=== PATIENT | female | born 1965 | race Caucasian/White ===

== ENCOUNTER → 2018-10-09 | Outpatient (CLI) | payer OTHER | LOC: M.RAD 11:39 | DX: Z12.31 Encounter for screening mammogram for malignant neoplasm of breast (principal) ==

== ENCOUNTER → 2019-04-08 | Outpatient (CLI) | payer OTHER ==
[2019-04-08 08:33] LABS: ABSOLUTE EOSINOPHILS 0.2 thou/uL (0.0-0.7); ABSOLUTE LYMPHOCYTES 1.4 thou/uL (0.8-5.3); ABSOLUTE MONOCYTES 0.4 thou/uL (0.0-1.2); ABSOLUTE NEUTROPHILS 2.6 thou/uL (1.6-8.1); BASOPHILS 0.8 %; EOSINOPHILS 3.3 %; HEMATOCRIT 40.5 % (37.0-47.0); HEMOGLOBIN 14.4 gm/dL (12.0-15.0); LYMPHOCYTES 31.2 %; MCH 33.8 pg (26.0-34.0); MCHC 35.5 g/dL (28.0-37.0); MONOCYTES 8.7 %; MPV 8.8 fl. (7.2-11.1); NUCLEATED RBCS 0 /100WBC; PLATELET COUNT* 267 thou/uL (150-400); RBC 4.26 mil/uL (4.20-5.00); WBC 4.6 thou/uL (4.0-11.0)
[2019-04-08 09:03] LABS: ALBUMIN 3.9 g/dL (3.4-5.0); ALKALINE PHOSPHATASE 97 U/L (46-116); ANION GAP 10 mmol/L (7-16); BUN 15 mg/dL (7-18); CALCIUM 9.1 mg/dL (8.5-10.1); CHLORIDE 101 mmol/L (98-107); CHOLESTEROL 251 mg/dL (<200); CO2 28 mmol/L (21-32); CREATININE 0.7 mg/dL (0.6-1.3); GLUCOSE 104 mg/dL (70-99); HDL CHOLESTEROL 52 mg/dL (>40); LDL CHOLESTEROL 170 mg/dL (<100); POTASSIUM 3.7 mmol/L (3.5-5.1); SGOT 16 U/L (15-37); SGPT 30 U/L (30-65); SODIUM 139 mmol/L (136-145); TC:HDL 4.8 Ratio (Not establshd); TOTAL BILIRUBIN 0.5 mg/dL (<0.1-1.0); TOTAL PROTEIN 7.4 g/dL (6.4-8.2); TRIGLYCERIDE 148 mg/dL (<150); VLDL 30 mg/dL (<40)
[2019-04-08 09:04] LABS: SERUM ASSESSMENT Clear
[2019-04-10 02:10] LABS: GLYCOHEMOGLOBIN (HGB A1C) 5.5 % (4.8-5.6)
== END ==
LOC: M.LAB 08:08
PROVIDERS: Family Medicine
DX: F33.1 Major depressive disorder, recurrent, moderate (principal); F41.9 Anxiety disorder, unspecified; R63.5 Abnormal weight gain; R73.09 Other abnormal glucose

== ENCOUNTER → 2019-05-01 | Outpatient (CLI) | payer OTHER | LOC: M.CT 04-21 11:00 | DX: Z13.6 Encounter for screening for cardiovascular disorders (principal) ==

== ENCOUNTER → 2019-09-26 | Outpatient (CLI) | payer OTHER | LOC: M.RAD 16:23 | DX: M47.816 Spondylosis without myelopathy or radiculopathy, lumbar region (principal); M43.17 Spondylolisthesis, lumbosacral region; M48.061 Spinal stenosis, lumbar region without neurogenic claudication; M25.78 Osteophyte, vertebrae; M12.88 Other specific arthropathies, not elsewhere classified, other specified site ==

== ENCOUNTER → 2019-10-06 | Outpatient (CLI) | payer OTHER | LOC: M.MRI 11:30 | DX: M47.816 Spondylosis without myelopathy or radiculopathy, lumbar region (principal); M48.061 Spinal stenosis, lumbar region without neurogenic claudication; M51.26 Other intervertebral disc displacement, lumbar region ==

== ENCOUNTER → 2019-10-16 | Outpatient (CLI) | payer OTHER ==
[~2019-10-16] MED LIST: AMITRIPTYLINE H10 M3 PO; MOBIC15 MG PO; VALIUM5 MG PO; ZOLOFT25 MG PO
--- NOTE | 2019-10-17 08:24 | PAINCON ---
[address] [address] PAIN MANAGEMENT CONSULTATION Name: YOLANDATG A [id number] Admission: 10/16/19 Attend Phys: Kam Marques MD Discharge: Date of : 61 Report #: [id number] THIS REPORT FOR: //name// cc: Jake Gracia Linda J. DO ~ THIS REPORT FOR: //name// CC: JAKE Samayoa DATE OF SERVICE: 10/16/2019 PRIMARY CARE PHYSICIAN: Jake Gracia DO CHIEF COMPLAINT: Back and leg pain. HISTORY: The patient is a 53-year-old female who has been referred to the pain clinic for evaluation of back and leg pain. The patient states that she has had a long history about the last 10-15 years of chronic back pain. She has undergone a number of treatments, which have included chiropractic treatment, use of nonsteroidal anti-inflammatory medications, Lidoderm patches, Medrol Dosepak, dexamethasone treatments with continued back pain. 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 As the day progresses, her pain becomes more and more problematic. 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 Pain involves the low back area. Also involves both hips. Notes that the iliotibial band areas are quite sore. Has pain in the front of her quad. Pain is particularly problematic if she stands in one place. Bending over is problematic. Pain is somewhat improved, if she continues to move. Describes her discomfort as continuous, constant, cramping, aching, gnawing and sharp at times. Rates it as a 2-3 in the morning and elevates to 7-8 by evening. Denies any trauma. Denies back surgery. Rates her pain as a pain score is a 66/70 in regards to the impact scores. ALLERGIES: AMOXICILLIN, BIAXIN, INFLUENZA VACCINES. CURRENT MEDICATIONS: Nonsteroidal anti-inflammatory medications [id number]. PAST SURGICAL HISTORY: Breast augmentation 2001. 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 REVIEW OF SYSTEMS: Generally good health, headaches, wears glasses, chronic sinus problems, chronic cough, joint pain, muscle pain and cramps, back pain, [place] [address] PAIN MANAGEMENT CONSULTATION Name: TG GUERRERO Radha Room: [facility]#: [id number] Admission: 10/16/19 Attend Phys: Kam Marques MD Discharge: Date of : 61 Report #: [id number] difficulty walking, frequent recurring headaches, nervousness, anxiety, depression, somewhat insomnia. LABORATORY DATA: MRI of the lumbar spine dated 10/06/2019 shows at L2-L3 there is a broad-based disk bulge, which abuts the anterior thecal sac. The canal measures 13 mm, minimal extension of the disk is seen into the right foramen causing minimal foraminal tapering at L3-L4. There are early posterior facet degenerative changes with broad-based disk bulge. The canal measures 13 mm. At L4-L5, there are moderate posterior disk facet degenerative changes with broad-based disk protrusions. No impingement is seen in the overall canal. The disk extends into the foramen causing mild bilateral foraminal stenosis. At the L5-S1 level, there is minimal bulging of the disk annulus without impingement on the canal. Severe posterior facet degenerative changes are present at this level. Together, these findings cause mild bilateral foraminal stenosis, left greater than right. PAIN CLINIC ASSESSMENT AND PQRS: 1. Height 5 feet 1 inch, weight 146 pounds, BMI is 27.7. 2. Vital signs: Blood pressure 143/83, heart rate 92, respiratory rate 16, room air saturation 98%. 3. Pain intensity 7/10. 4. Fall history: The patient has not fallen in the last 3 months. 5. Blood thinner. The patient is not on a blood thinning medication. 6. Hypertension. The patient is not being treated for hypertension. 7. Opioids greater than 6 weeks. The patient is not receiving opioids on a regular basis. 8. Risk assessment tool, low for opioid use. 9. Functional assessment tool has 60/70. 10. Recreational drug use: The patient denies. 11. Tobacco: The patient denies use of tobacco. 12. Alcohol. The patient denies frequent use of alcoholic beverages. PHYSICAL EXAMINATION: GENERAL: The patient is a well-developed, well-nourished white female. Appears her stated age. She is alert and oriented x 3. Her affect is appropriate. Speech is fluent. HEENT: Normocephalic, atraumatic. Extraocular eye muscles intact. Sclerae nonicteric. Mucous membranes are moist. NECK: Without adenopathy or JVD. HEART: Regular rate. LUNGS: Clear to auscultation. ABDOMEN: Nontender. MUSCULOSKELETAL: Upper extremity muscle strength judged to be 5/5 for the major muscle groups in the upper extremity. Deep tendon reflexes are trace at the biceps bilaterally. Lower extremity muscle strength judged to be 5/5 for the major muscle groups in the lower extremity. Deep tendon reflexes are +2 at the [place] [address] PAIN MANAGEMENT CONSULTATION Name: YOLANDATG Radha Room: [facility]#: [id number] Admission: 10/16/19 Attend Phys: Kam Marques MD Discharge: Date of : 61 Report #: [id number] knees bilaterally. Colby's sign is negative. Anterior and posterior spring tests are negative. The patient notes increased pain and discomfort while standing and leaning from the left to the right. Left and right lateral rotation cause some increased pain and discomfort in the back as well. Lumbar extension was not problematic. The patient was able to bend over to touch her toes with a slight amount of pain and discomfort. Notes pain and discomfort in the left as well as right iliotibial tract and near the left and right bursa. The patient has pain and discomfort that radiates down in the L3-L4 dermatomal distribution of her legs. IMPRESSION: Lumbar radiculopathy L3-L4 dermatomal distribution with pain and discomfort, sensory changes. The patient with MRI showing Modic changes at the L3-L4 area with degenerative joint disease and narrowing of the disk space. RECOMMENDATIONS: We discussed treatment options with the patient. At this juncture, we will try a nonsteroidal anti-inflammatory medication. We will try Mobic. This is a long-acting medication. She can take this once daily. Hopefully, this will be helpful in decreasing the pain and discomfort that she is experiencing. She will also try Elavil. The patient is having difficulty sleeping. Use of amitriptyline medication has been helpful in chronic pain situations. The patient will take a minimal dose of this medication. Maximum dose can be 150 mg. We will start her out with 10 mg. We discussed the possible side effects of the medication. 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 I do not think she is going to have any of these problems and will try that medication. She will try 10 mg for the first 3 days and if she is still having difficulty with pain as well as inability to sleep and with insomnia, she will take 20 mg at bedtime. She will return to the Pain Clinic for an epidural steroid injection as soon as her insurance carrier provides us an opportunity. She has an appointment with her dentist. She is considering in the near future to have her wisdom teeth extracted. We would like to thank you for letting us participate in her care. We hope she continues to improve. <ELECTRONICALLY SIGNED> By: Kam Marques MD 10/17/19 0824 1424 [id number]. Ulysses Marques MD /cecil
== END ==
LOC: M.PC 08:32
DX: M54.16 Radiculopathy, lumbar region (principal); M48.061 Spinal stenosis, lumbar region without neurogenic claudication

== ENCOUNTER → 2019-10-21 | Outpatient (CLI) | payer OTHER ==
--- NOTE | 2019-10-24 09:07 | PAINCON ---
[place] [address] PAIN MANAGEMENT CONSULTATION Name: YOLANDAGT Radha Room: [facility]#: [id number] Admission: 10/21/19 Attend Phys: Kam Marques MD Discharge: Date of : 61 Report #: [id number] THIS REPORT FOR: //name// cc: Stephanie Gracia Linda J. DO ~ THIS REPORT FOR: //name// CC: Stephanie Marques DATE OF SERVICE: 10/21/2019 CHIEF COMPLAINT: Here for an epidural steroid injection. HISTORY: The patient is a 53-year-old female who has been seen in the pain clinic because of lumbar radiculopathy. She does have some irritation at the L3-L4 level. She has returned today for an epidural steroid injection to help with pain and discomfort which she is experiencing at this level and down into her lower extremities. She has no additional questions. She would like to proceed with the injection. ALLERGIES: AMOXICILLIN, BIAXIN, INFLUENZA VACCINES. PAIN CLINIC ASSESSMENT AND PQRS: 1. Height 5 feet 1 inch, weight 149 pounds, BMI is 28.2. 2. Vital signs: Blood pressure 133/68, heart rate 100, respiratory rate 16, room air saturation 98%, temperature 98.7. 3. Pain intensity 3/10. 4. Fall history: The patient has not fallen in the last 3 months. 5. Blood thinner. The patient is not on a blood thinning medication. 6. Hypertension. The patient is not being treated for hypertension. 7. Opioids greater than 6 weeks. The patient receives no opioid medications on a regular basis. 8. Risk assessment tool, low for opioid use. 9. Functional assessment tool 60/70. 10. Recreational drug use: The patient denies. 11. Tobacco: The patient denies use of tobacco. 12. Alcohol. The patient denies frequent use of alcoholic beverages. PHYSICAL EXAMINATION: GENERAL: The patient is a well-developed, well-nourished white female. Appears her stated age. She is alert and oriented x 3. Her affect is appropriate. Speech is fluent. HEENT: Normocephalic, atraumatic. Extraocular eye muscles intact. Sclerae nonicteric. Mucous membranes are moist. NECK: Without adenopathy [place] [address] PAIN MANAGEMENT CONSULTATION Name: YOLANDATG A Room: [facility]#: [id number] Admission: 10/21/19 Attend Phys: Kam Marques MD Discharge: Date of : 61 Report #: [id number] HEART: Regular rate. LUNGS: Clear to auscultation. ABDOMEN: Nontender. EXTREMITIES: Upper extremity muscle strength judged to be 5/5 for the major muscle groups in the upper extremity. MUSCULOSKELETAL: The patient without significant scoliosis, kyphosis or lordosis. Lower extremity muscle strength judged to be 5/5 for the major muscle groups in the lower extremity. The patient notes pain and discomfort in the left as well as the right iliotibial tract areas and pain that is radiating from the left and right bursa. Also, has pain and discomfort that radiates down the L3-L4 dermatomal distribution of her legs. IMPRESSION: Lumbar radiculopathy, L3-L4 dermatomal distribution with pain and discomfort with sensory changes. The patient has MRI showing Modic changes at the L3-L4 area with degenerative joint disease and narrowing of the disk space. RECOMMENDATIONS: We discussed treatment options with the patient. Risks and benefits of an epidural steroid injection were discussed. They include but are not limited to infection, worsening pain, no improvement in pain, nerve damage, spinal headache and the patient elects to proceed. PROCEDURE NOTE: The patient was taken to the procedure area. She was then assisted in getting on examination table. Her back was sterilely prepped with a Betadine solution. At the L3-L4 area, 0.25% bupivacaine was infiltrated. A 17-gauge Tuohy with loss of resistance technique at the L3-L4 area was then undertaken. There was no CSF, heme or paresthesia. Total of 80 mg Depo-Medrol, 40 mg triamcinolone and 2 mL of 0.25% bupivacaine was injected. The patient tolerated the procedure well. There were no complications. She remained in the Pain Clinic for an appropriate amount of time. We would like to thank you for letting us participate in her care. We hope she continues to improve. Total of 14 seconds fluoroscopy time was used. The patient will follow up in the future in about 1 month for reevaluation. <ELECTRONICALLY SIGNED> By: Kam Marques MD 10/24/19 0907 1412 [id number]. Ulysses Marques MD /[facility]
== END | disposition home or self-care (01) ==
LOC: M.PC 04:31
DX: M54.16 Radiculopathy, lumbar region (principal); G89.29 Other chronic pain; Z79.899 Other long term (current) drug therapy; Z88.8 Allergy status to other drugs, medicaments and biological substances

== ENCOUNTER → 2019-11-18 | Outpatient (CLI) | payer OTHER ==
[~2019-11-18] MED LIST changes: +NEURONTIN 300300 M1 PO
--- NOTE | 2019-11-28 09:00 | PAINCON ---
[place] [address] PAIN MANAGEMENT CONSULTATION Name: YOLANDATG Radha Room: [facility]#: [id number] Admission: 11/18/19 Attend Phys: Kam Marques MD Discharge: Date of : 61 Report #: [id number] THIS REPORT FOR: //name// cc: Jake Gracia Linda J. DO ~ THIS REPORT FOR: //name// CC: JAKE Samayoa DATE OF SERVICE: 11/18/2019 CHIEF COMPLAINT: "I would like another epidural injection." HISTORY: The patient is a 54-year-old female who has been followed in the pain clinic because of chronic low back pain. She has undergone epidural steroid injections in the past. These have been beneficial. She rates her pain as a 3/10 today. She has noticed a return of pain and discomfort in the back and anterior portion of her legs. She feels that another injection would be beneficial. She feels overall that things are about 40% improved with use of meloxicam. She has curtailed her activity somewhat because of discomfort. ALLERGIES: AMOXICILLIN, BIAXIN, INFLUENZA VACCINES. PAIN CLINIC ASSESSMENT AND PQRS: 1. Height 5 feet 1 inch, weight 148 pounds, BMI is 28. 2. Vital Signs: Blood pressure 142/90, heart rate 89, respiratory rate 16, room air saturation 98%, temperature 98.0. 3. Pain intensity 10. 4. Fall history: The patient has not fallen in the last 3 months. 5. Blood thinner. The patient is not on a blood thinning medication. 6. Hypertension. The patient is not being treated for hypertension. 7. Opioids greater than 6 weeks. [place] [facility] [place] 8. Risk assessment tool, low for opioid use. 9. Functional assessment tool, 60/70. 10. Recreational drug use: The patient denies. 11. Tobacco: The patient denies use of tobacco. 12. Alcohol. The patient denies frequent use of alcoholic beverages. PHYSICAL EXAMINATION: GENERAL: The patient is a well-developed, well-nourished white female, appears her stated age. She is alert and oriented x 3. Her affect is appropriate. Speech is fluent. HEENT: Normocephalic, atraumatic. Extraocular [place] [address] PAIN MANAGEMENT CONSULTATION Name: TG GUERRERO Radha Room: [facility]#: [id number] Admission: 11/18/19 Attend Phys: Kam Marques MD Discharge: Date of : 61 Report #: [id number] nonicteric. Mucous membranes are moist. NECK: Without adenopathy or JVD. HEART: Regular rate. LUNGS: Clear to auscultation. ABDOMEN: Nontender. EXTREMITIES: Upper extremity muscle strength judged to be 5/5 for the major muscle groups in the upper extremity. MUSCULOSKELETAL: The patient without significant scoliosis, kyphosis or lordosis. The patient's upper extremity muscle strength is 5/5 for the major muscle groups. Lower extremity muscle strength is 5/5. The patient has some discomfort and pain in the right area of the iliotibial tract as well as pain in the anterior portion of her right and left legs. She feels that the pain is worse on the right than the left. IMPRESSION: 1. Lumbar radiculopathy with dermatomal changes at L3-L4. 2. The patient has MRI showing Modic changes at L3-L4 with degenerative joint disease and narrowing of the disk space. RECOMMENDATIONS: We discussed treatment options with the patient. Risks and benefits of an epidural steroid injection were again discussed. Possible complications of the procedure, which could include but are not limited to infection were reviewed. The patient elects to proceed with an injection. PROCEDURE NOTE: The patient was taken to the procedure area. She was then assisted in getting on the examination table. Her back was sterilely prepped with Betadine. At the L3-L4 area, 0.25% bupivacaine was infiltrated. A 17-gauge Tuohy with loss of resistance technique was used to gain access at the L3-L4 area. A total of 80 mg Depo-Medrol, 40 mg triamcinolone and 2 mL of 0.25% bupivacaine was injected. The patient tolerated the procedure well. There were no complications. She remained in the Pain Clinic for an appropriate amount of time. She will follow up in the future as needed. We would like to thank you for letting us participate in her care. We hope she continues to improve. Total of 15 seconds fluoroscopy time was used. <ELECTRONICALLY SIGNED> By: Kam Marques MD 11/28/19 0900 1425 [id number]. Ulysses Marques MD /cecil
== END | disposition home or self-care (01) ==
LOC: M.PC 08:00
DX: M51.16 Intervertebral disc disorders with radiculopathy, lumbar region (principal); G89.29 Other chronic pain; Z98.890 Other specified postprocedural states; Z79.899 Other long term (current) drug therapy; Z88.8 Allergy status to other drugs, medicaments and biological substances

== ENCOUNTER → 2020-06-17 | Outpatient (CLI) | payer OTHER | LOC: M.RAD 10:44 | PROVIDERS: ATTEND Family Medicine | DX: Z12.31 Encounter for screening mammogram for malignant neoplasm of breast (principal) ==

== ENCOUNTER 2021-02-14 16:21 | Emergency (ER) | payer OTHER ==
[~2021-02-14] VITALS: Ht 154.9 cm; Wt 56.7 kg
[2021-02-14] MEDS ORDERED: HORMONE REPLACEMENT (16:43)
[2021-02-14] MEDS ORDERED: HYDROCODON-ACE1 EAC7 PO (18:36)
[2021-02-14] MEDS ORDERED: CEPHALEXIN500 MG PO (18:36)
[2021-02-14 18:52] VITALS: BP 121/67
== END 2021-02-14 18:52 | disposition home or self-care (01) ==
LOC: M.ERS 16:21
DX: S61.011A Laceration without foreign body of right thumb without damage to nail, initial encounter (principal); Z88.1 Allergy status to other antibiotic agents; Z88.7 Allergy status to serum and vaccine; W22.8XXA Striking against or struck by other objects, initial encounter; Y93.89 Activity, other specified; Y92.89 Other specified places as the place of occurrence of the external cause; Y99.8 Other external cause status